=== PATIENT | male | born 1960 | race African-American/Black ===

== ENCOUNTER 2021-08-02 16:19 | Inpatient (IN) | payer MEDICARE, MEDICAID, SELFPAY ==
[2021-08-02] VITALS (8 sets, daily range): BP systolic 113–137; BP diastolic 84–98; PULSE 57–76; RESP 14–22; TEMP 36.6–36.9; O2SAT 94–97; BMI 26.9
--- NOTE | ~2021-08-02 | US_ITS ---
EXAMINATION: US carotid duplex BI DATE: 08/03/2021 08:59 INDICATION: Left basal ganglia infarct. Transient ischemic attack. TECHNIQUE: Grayscale, color Doppler, and pulsed Doppler images of the cervical carotid arteries were obtained. The degree of vessel stenosis is placed in one of the following categories: normal, <50%, 5 0-69%, >=70% but less than near-occlusion, near-occlusion, or total occlusion. Note that percent sten osis relative to normal distal artery lumen diameter is indirectly measured from velocity measurement s as described by Deny, et al. Radiology 2003; 229:340-346. COMPARISON: None. FINDINGS: RIGHT: The right common carotid artery (CCA) peak systolic velocity (PSV) is 90 cm/s. The right internal car otid artery (ICA) PSV is 70 cm/s. The right ICA end-diastolic velocity (EDV) is 24 cm/s. The right IC A/CCA PSV ratio is 1.7. Grayscale and color Doppler images yield an estimate of <50% diameter reducti on from plaque in the ICA. There is antegrade flow in the right vertebral artery. LEFT: The left CCA PSV is 72 cm/s. The left ICA PSV is 51 cm/s. The left ICA EDV is 10 cm/s. The left ICA/C CA PSV ratio is 1.1. Grayscale and color Doppler images yield an estimate of <50% diameter reduction from plaque in the ICA. There is antegrade flow in the left vertebral artery. IMPRESSION: 1. <50% stenosis in the right internal carotid artery. 2. <50% stenosis in the left internal carotid artery. Reviewed, dictated and finalized at location A.
--- NOTE | ~2021-08-02 | MR_ITS ---
EXAMINATION: MR brain/brain stem wo con DATE: 08/03/2021 10:55 INDICATION: Transient ischemic attack. TECHNIQUE: Magnetic resonance imaging (MRI) of the brain and brainstem was performed without intraven ous contrast. COMPARISON: Head CT 08/02/21 FINDINGS: There is an acute infarct in right caudate nucleus. There is no intracranial hemorrhage or abnormal mass lesion. There are old infarcts involving the bilateral basal ganglia, wilian, and right c erebellum. There is chronic cystic encephalomalacia in the right frontal lobe deep white matter. Ther e are scattered areas of nonspecific increased T2-weighted signal intensity in the cerebral white mat ter. The ventricles are normal in size. There is mucosal thickening in the paranasal sinuses. There i s a left mastoid effusion. The orbits are normal. IMPRESSION: 1. Acute infarct in right caudate nucleus. 2. Old infarcts in the brain. 3. Moderate nonspecific cerebral white matter disease, which likely represents chronic small vessel i schemic disease. Reviewed, dictated and finalized at location A. IMPRESSION: 1. Acute infarct in right caudate nucleus. 2. Old infarcts in the brain. 3. Moderate nonspecific cerebral white matter disease, which likely represents chronic small vessel ischemic disease.
--- NOTE | ~2021-08-02 | CT_ITS ---
EXAMINATION: CT brain wo con DATE: 08/02/2021 16:25 INDICATION: Cerebrovascular accident TECHNIQUE: Computed tomography (CT) of the head was performed without intravenous contrast. The mA wa s adjusted according to patient size. Iterative reconstruction technique was employed. Exam dose: 60 5.33 mGy-cm total exam DLP. COMPARISON: None FINDINGS: Bilateral vertebral artery, basilar artery and bilateral carotid siphon and supraclinoid in ternal carotid artery calcifications. There is nonspecific diminished attenuation of the subcortical and periventricular cerebral white mat ter, likely due to chronic small vessel ischemic changes. Chronic left basal ganglia lacunar infarcts. Chronic bilateral periventricular lacunar infarcts. No intracranial mass lesion or hemorrhage or recent cerebrovascular accident is evident. No midline s hift or mass effect effect. No subdural or epidural hematoma.. No skull fracture or bone destruction is evident. There is soft tissue thickening the ethmoid air cells bilaterally and minimal mucoperiosteal thickeni ng of the left and bilateral sphenoid sinuses. IMPRESSION: Cerebral atherosclerosis and chronic small vessel ischemic changes of the cerebral white matter Chronic left basal ganglia and bilateral periventricular lacunar infarcts No acute intracranial finding Reviewed, dictated and finalized at Location A. Reviewed, dictated and finalized at location A.
--- NOTE | ~2021-08-02 | XR_ITS ---
EXAMINATION: XR chest 1V Exam Date/Time: 08/02/2021 16:20 CDT HISTORY: r/o cva Comparison: None available. RESULT: Lines, tubes, and devices: None. Lungs and pleura: Clear. Cardiomediastinal silhouette: Unremarkable cardiomediastinal silhouette. Other: No acute osseous or upper abdominal finding. IMPRESSION: No acute cardiopulmonary process. Reviewed, dictated and finalized at location K.
--- NOTE | 2021-08-02 16:19 | ECG_ITS ---
Measurements Intervals [place] Rate: 68 P: 38 RI: 159 QRS: -24 QRSD: 104 T: -7 QT: 389 QTc: 416 Interpretive Statements SINUS RHYTHM BORDERLINE LEFT AXIS DEVIATION [QRS AXIS < -20] MINIMAL VOLTAGE CRITERIA FOR LVH, CONSIDER NORMAL VARIANT [MEETS CRITERIA IN ONE OF: R(aVL), S(V1), R(V5), R(V5/V6)+S(V1)] NONSPECIFIC T-WAVE ABNORMALITY NO PREVIOUS ECG AVAILABLE FOR COMPARISON Electronically Signed On 08-03-2021 7:22:57 CDT by Vitor Escobar M.D.
--- NOTE | 2021-08-02 16:26 | ED.BACK ---
HPI - Back Pain/Injury General Chief Complaint: Neuro Symptoms/Deficit Stated Complaint: ?CVA Time Seen by Provider: 08/02/21 16:21 History of Present Illness HPI Narrative: This 59-year-old male with history of previous CVA approximately 2 years ago presents to the emergency department for evaluation of an episode of altered mental status and worsening left-sided weakness. Fianc? states that they were having lunch and patient was leaning against the side of a car when he had decreased responsiveness. She states the patient did slump down while looking to the side. She reports the patient was not moving his left side. EMS was called. EMS states that the patient did have left-sided weakness and a code stroke was called in the field. Incident happened at approximately 3:20 PM. Upon arrival to the ED patient was able to participate in the initial stroke screening and patient went to CT scan. Patient did have decreased station gateman strength to the left and had decreased responsiveness. Patient and family report a prior CVA but denies any prior history of seizure. Fianc? states that patient does have left-sided deficit and dysarthria at baseline from prior stroke Related Data Allergies Allergy/AdvReac Type Severity Reaction Status Date / Time No Known Allergies Allergy Unverified 05/09/18 17:32 Review of Systems Review of Systems: CONSTITUTIONAL: Denies fever, chills, or sweats. EYES: Denies visual changes, redness, or discharge. ENT: Denies rhinorrhea, congestion, sore throat, or otalgia. CARDIOVASCULAR: Denies chest pain, palpitations, or edema. RESPIRATORY: Denies cough or dyspnea. GASTROINTESTINAL: Denies abdominal pain, nausea, vomiting, or diarrhea. GENITOURINARY: Denies dysuria or hematuria. SKIN: Denies rash or itching. MUSCULOSKELETAL: Denies back pain, joint pain, or myalgia. NEUROLOGIC: Altered mental status on arrival PSYCHIATRIC: Denies anxiety or depression. Exam Narrative: APPEARANCE: Well appearing, no pain, no distress, well-nourished. HEAD: normocephalic, atraumatic. EYES: PERRLA/EOMI, conjunctivae clear. NOSE: Normal no drainage THROAT: Pharynx clear, no exudate. NECK: Supple. No adenopathy, no masses. RESPIRATORY: Airway patent, respirations nonlabored. Clear to auscultation bilaterally, no rales, rhonchi, wheezing. CARDIOVASCULAR: Regular rate and rhythm without murmurs rubs or gallops. ABDOMINAL: Soft, nontender, nondistended, normal bowel sounds MUSCULOSKELETAL: Moves all extremities. Strength/ROM intact, No edema, No calf tenderness. NEURO: Alert. Cranial nerves II through XII intact. Patient's only significant neurodeficit is his dysarthria. Patient's mental status did significantly improve during his stay in the ED. SKIN: Warm, dry. Normal Color Course Course Emergency Course: Patient did return to his normal baseline. Suspect patient had a TIA. Patient states he is not on any anticoagulation. Patient's head CT was negative for acute intracranial abnormality. Case was discussed with Dr. Pulido and patient will be admitted for further work-up. Case was also discussed with the hospitalist patient will be admitted to [facility]. Patient was given aspirin prior to going to the floor. Vital Signs Vital signs: Vital Signs Temperature 98.4 F 08/02/21 16:27 Pulse Rate 68 08/02/21 16:27 Respiratory Rate 22 H 08/02/21 16:27 Blood Pressure 113/84 08/02/21 16:27 Pulse Oximetry 97 08/02/21 16:27 Oxygen Delivery Room Air 08/02/21 16:27 Temperature 98.4 F 08/02/21 16:27 Pulse Rate 69 08/02/21 16:45 Respiratory Rate 14 08/02/21 16:45 Blood Pressure 113/84 08/02/21 16:35 Pulse Oximetry 97 08/02/21 16:27 Oxygen Delivery Room Air 08/02/21 16:27 MDM - Back Pain/Injury Lab Data Attestation: I reviewed the patient's lab results. Result diagrams: 08/02/21 16:22 08/02/21 16:22 Labs: Lab Results 08/02/21 08/02/21 08/02/21 Range/Units 16:2
[2021-08-02 16:34] LABS: Basophils Absolute Auto 0.1 K/mm3 (0.0-0.1); Basophils Percent Auto 0.9 % (0.2-1.2); Eosinophils Absolute Auto 0.1 K/mm3 (0-0.3); Eosinophils Percent Auto 1.9 % (0-4.4); Hematocrit 47.2 % (42.0-52.0); Hemoglobin 15.9 g/dL (14.0-18.0); Lymphocytes Absolute Auto 1.71 K/mm3 (0.9-3.2); Lymphocytes Percent Auto 29.8 % (18.3-44.2); Mean Corpuscular HGB Conc 33.7 g/dl (32-36); Mean Corpuscular Hemoglobin 29.7 pg (26-34); Mean Corpuscular Volume 88.2 fl (80-100); Mean Platelet Volume 8.8 fl (7.4-10.4); Monocytes Absolute Auto 0.5 K/mm3 (0.1-0.6); Monocytes Percent Auto 8.4 % (2.6-8.5); Neutrophils Absolute Auto 3.4 K/mm3 (1.3-6.7); Platelet Count Result 251 k/mm3 (150-375); Red Blood Count 5.35 M/mm3 (4.6-6.20); White Blood Count 5.7 K/mm3 (4.5-10.0)
[2021-08-02 16:44] LABS: Alanine Aminotransferase 44 U/L (6-50); Albumin Level 4.6 g/dL (3.5-5.1); Alkaline Phosphatase 81 U/L (38-126); Anion Gap 11 mmol/L (8-16); Aspartate Amino Transferase 36 U/L (17-59); Blood Urea Nitrogen 17 mg/dL (9-20); Calcium 8.7 mg/dL (8.4-10.2); Carbon Dioxide 22 mmol/L (22-30); Chloride 105 mmol/L (98-107); Estimated CRCL calculation 61 ml/min; Estimated Glomerular Filt Rate > 60; Glucose 117 mg/dL (65-110); Potassium 3.6 mmol/L (3.4-5.0); Sodium 138 mmol/L (137-145)
[2021-08-02 16:49] LABS: Partial Thromboplastin Time 25.5 SECONDS (22.3-36.8)
[2021-08-02 16:56] LABS: Troponin I < 0.012 ng/mL (0.000-0.034)
[2021-08-02 17:04] LABS: Ethanol < 10 mg/dL (<10)
--- NOTE | 2021-08-02 17:15 | PM.IMHP ---
H&P: HPI History of Present Illness Date/Time: 08/02/21 17:15 Chief Complaint: Left face droop and slurred speech. Narrative: This is a 61-year-old male smoker with history of stroke in April 2018 with residual left sided weakness and slurred speech and dyslipidemia who presented to the emergency department via EMS for evaluation of left face droop and slurred speech. He knows grow from 1 out to lunch and he seemed to be in his usual state of health at that time. When they were walking back to the car he suddenly stopped and rested his arms on the car, turned to harm with a strange look on his face, and he seemed to be slumped over onto the car. He was not answering her questions and slowly seemed to slide down the car until he landed on his buttocks on the ground. She called for help at which time she was instructed to evaluate the patient and she reports that he was unable to raise either his arms up or speak however she goes on to say that it seems as though he just was not processing what she said. EMS was summoned and he was brought to the ER for evaluation as they noticed left-sided facial drooping and slurred speech. Brain CT showed no acute findings and his labs were essentially unremarkable. Incidentally he tested positive for SARS-CoV-2 by PCR and with further questioning he denies sick contacts. He has had somewhat of a cough which has been nonproductive and he denies other symptoms of such. At the time my evaluation he has reportedly at baseline with mild residual left-sided weakness and his chronic slurred speech. There was no mention of seizure activity with this episode today. Review of Systems Review of Systems: Twelve systems were reviewed. No fever, chills, or sweats. No sinus congestion or sore throat. Cough has been nonproductive. No chest pain or shortness of breath. Appetite has been good. He denies nausea but girlfriend reports that he had 1 episode of emesis shortly after he fell to the ground on his buttocks today. Denies dysuria and diarrhea. Except as documented, all other systems were reviewed and are negative. FOR[facility]LY [facility] Past Medical History Medical History (Updated 08/02/21 @ 20:41 by Tianna Moffett PA-C) Cerebrovascular accident (04/2018) Residual slurred speech and left-sided weakness. Dyslipidemia Tobacco dependence Surgical History Surgical History (Updated 08/02/21 @ 20:36 by Tianna Moffett PA-C) No history of previous surgery Family History Family History Mother Cerebrovascular accident Hypertension Sibling Prostate carcinoma Social History Social History (Updated 08/02/21 @ 20:36 by Tianna Moffett PA-C) Social History: Surrogate decision maker: Naeem Olivia, daughter. Code status: Full code. Smoking status: Current every day smoker Alcohol intake: current Drinks per week: 3 Substance use: never Additional living arrangements comments: The patient lives with his mother. Occupation/Education: unemployed Additional occupation/education comments: Disabled. Spiritual care concerns: No Meds Home Medications and Allergies Allergies Allergy/AdvReac Type Severity Reaction Status Date / Time No Known Allergies Allergy Unverified 05/09/18 17:32 Vital Signs Vital Signs - 24 hr 08/02/21 16:27 08/02/21 16:33 08/02/21 16:35 Temperature 98.4 F Pulse Rate 68 67 76 Respiratory Rate 22 H 19 Blood Pressure 113/84 113/84 Pulse Oximetry 97 Oxygen Delivery Room Air 08/02/21 16:45 08/02/21 19:31 08/02/21 20:12 Temperature 97.9 F Pulse Rate 69 71 64 Respiratory Rate 14 17 18 Blood Pressure 129/98 H 137/86 Pulse Oximetry 94 97 Oxygen Delivery Exam Narrative: General: Well-developed male sitting up in bed no distress. Nontoxic in appearance. Weight: 82.5 kg. BMI: 26.9. HEENT: PERRL, EOMI. Sclerae anicteric. Oral mucosa moist. Oropharynx clear. Neck: Supple. No obviou
[2021-08-02] MEDS: ASPIRIN 81 MG CHEWABLE TABLET 324 MG PO (17:37)
[2021-08-02 18:03] LABS: SARS-CoV-2 RNA PCR Positive
--- NOTE | 2021-08-02 20:13 | ADMGEN ---
This patient, Randall Olivia, was admitted to Medical Room 252-01. Patient/family oriented to hospital policies and general routines including ID bracelet, bed and alarms, visiting hours, pain management, procedures, bathroom and other care routines, personal items, smoking policy, room service/diet, and visiting hours. Information on how to activate the Rapid Response Team has been discussed. Patient/Family are encouraged to report perceived risks to care and to ask questions if they do not understand what they are told or what they should do.
[2021-08-03] VITALS (9 sets, daily range): BP systolic 149–175; BP diastolic 88–92; PULSE 47–71; RESP 14–18; TEMP 36.4–36.7; O2SAT 99–100
[2021-08-03 05:49] LABS: Sodium 138 mmol/L (137-145)
[2021-08-03 05:50] LABS: Anion Gap 8 mmol/L (8-16); Blood Urea Nitrogen 16 mg/dL (9-20); Calcium 8.4 mg/dL (8.4-10.2); Carbon Dioxide 25 mmol/L (22-30); Chloride 105 mmol/L (98-107); Estimated CRCL calculation 83 ml/min; Estimated Glomerular Filt Rate > 60; Glucose 96 mg/dL (65-110); Magnesium 2.2 mg/dL (1.6-2.3); Potassium 3.8 mmol/L (3.4-5.0)
[2021-08-03 08:04] LABS: Glucose Point of Care 117 mg/dl (65-105)
[2021-08-03] MEDS: ASPIRIN 81 MG CHEWABLE TABLET PO (09:04)
--- NOTE | 2021-08-03 11:38 | PM.IMPN ---
Progress Note: A&P Assessment and Plan (1) Cerebrovascular accident: Onset Date: 04/2018 Code(s): I63.9 - Cerebral infarction, unspecified Status: Acute Assessment and Plan: -brought in for transient neurologic symptoms including worsening slurred speech, left face droop, and weakness -acute CVA confirmed on MRI -cartoid doppler negative -echo ordered -lipid panel: triglycerides slightly elevated, LDL/total cholesterol WNL -continued aspirin, added plavix and atorvastatin -neuro consulted -PT/OT (2) SARS-CoV-2 positive: Code(s): U07.1 - COVID-19 Status: Acute Assessment and Plan: -Patient reports having mild cough only. -He has been placed in isolation per protocol. -No indication for remdesivir or dexamethasone. (3) Dyslipidemia: Code(s): E78.5 - Hyperlipidemia, unspecified Status: Acute Assessment and Plan: -Continue atorvastatin. (4) Tobacco dependence: Code(s): F17.200 - Nicotine dependence, unspecified, uncomplicated Status: Acute Assessment and Plan: -Smoking cessation is imperative and was discussed. -Nicotine patch available for the patient per his request. Subjective Date/time seen: 08/03/21 11:38 Interval history: 61-year-old male smoker with history of stroke in April 2018 with residual left sided weakness and slurred speech and dyslipidemia admitted for worsened facial droop and slurred speech. Pt is feeling at his baseline weakness today. Had some nausea yesterday, none today. No cp/sob. Review of Systems Review of Systems: All systems reviewed & are unremarkable except as noted in HPI and below Exam Narrative: General: No acute distress. Nontoxic in appearance. Weight: 82.5 kg. BMI: 26.9. HEENT: PERRL, EOMI. Sclerae anicteric. Oral mucosa moist. Neck: Supple. Respiratory: Lungs are clear to auscultation bilaterally. Cardiovascular: Regular rate and rhythm with S1-S2. Gastrointestinal: Abdomen is soft, nontender, and nondistended with positive bowel sounds. Skin: Warm and dry. No rash or lesions on limited exam. Extremities: No cyanosis, clubbing, or edema. Radial and pedal pulses intact. Neurological: Alert and oriented. Cranial nerves 2-12 are grossly intact. Speech is slurred and at baseline. Mild left mouth droop. 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 Left upper and lower extremity 4.5/5, 5/5 in right upper and lower extremity. Psychiatric: Normal affect. Appropriate mood. Objective Data Vital Signs Vital Signs: Vital Signs - 24 hr 08/02/21 16:27 08/02/21 16:33 08/02/21 16:35 Temperature 98.4 F Pulse Rate 68 67 76 Respiratory Rate 22 H 19 Blood Pressure 113/84 113/84 Pulse Oximetry 97 Oxygen Delivery Room Air 08/02/21 16:45 08/02/21 19:31 08/02/21 20:12 Temperature 97.9 F Pulse Rate 69 71 64 Respiratory Rate 14 17 18 Blood Pressure 129/98 H 137/86 Pulse Oximetry 94 97 Oxygen Delivery 08/02/21 20:51 08/02/21 21:06 08/02/21 21:19 Temperature Pulse Rate 57 L Respiratory Rate Blood Pressure Pulse Oximetry 96 Oxygen Delivery Room Air Room Air 08/03/21 04:14 08/03/21 00:00 08/03/21 04:00 Temperature 97.8 F Pulse Rate 51 L 71 57 L Respiratory Rate 18 Blood Pressure 149/92 H Pulse Oximetry 100 Oxygen Delivery 08/03/21 09:15 08/03/21 08:03 Temperature Pulse Rate 66 Respiratory Rate Blood Pressure Pulse Oximetry Oxygen Delivery Room Air Intake/Output Intake/Output: Intake & Output 07/31/21 08/01/21 08/02/21 08/03/21 23:59 23:59 23:59 23:59 Intake Total 720 Balance 720 Meds/Results Medications: Active Medications Generic Name Dose Route Start Last Admin Trade Name Freq PRN Reason Stop Dose Admin Aspirin 81 mg 08/03/21 08:00 08/03/21 09:04 Aspirin 81 Mg Chewable Tablet PO 81 mg DAILY@0800 [facility] Adminis
--- NOTE | 2021-08-03 11:38 | WPDNEURCNPN ---
Assessment and Plan Assessment and plan (1) TIA (transient ischemic attack): Code(s): G45.9 - Transient cerebral ischemic attack, unspecified Status: Acute Plan TIA with instead investigation as planned in addition to the positive COVID further evaluation as being done and in the meantime continued on aspirin 81 mg daily Consult date: 08/03/21 Time Seen: 10:00 Reason for consult: stroke HPI: Randall Olivia is a 61 year old male admitted to the hospital through the emergency room with the history of previous stroke about 2 years ago and this time an episode of altered mental status and the worsening left-sided weakness reportedly they were having lunch patient was leaning to the side of the car and became somewhat unresponsive and subsequently slumped down at the same time the partner mentioned that he was not moving the left side on initial evaluation in the emergency room patient was noted to have decreased strength on the left side along with the decreased responsiveness his CT scan was negative for any bleed and he was admitted to the hospital for further evaluation initial vital signs were stable so as the routine lab the CT scan of the head documented chronic left basal ganglia and bilateral periventricular lacunar infarcts with negative x-ray of the chest normal EKG patient is currently everyday smoker with 3 drinks per week but no substance use he is not allergic to any medication Review of Systems Review of Systems: All systems reviewed & are unremarkable except as noted in HPI and below PMFSH Past Medical History Medical History Cerebrovascular accident (04/2018) Residual slurred speech and left-sided weakness. Dyslipidemia Tobacco dependence Surgical History Surgical History No history of previous surgery Family History Family History Mother Cerebrovascular accident Hypertension Sibling Prostate carcinoma Social History Social History Social History: Surrogate decision maker: Naeem Olivia, daughter. Code status: Full code. Smoking status: Current every day smoker Alcohol intake: current Drinks per week: 3 Substance use: never Additional living arrangements comments: The patient lives with his mother. Occupation/Education: unemployed Additional occupation/education comments: Disabled. Spiritual care concerns: No Meds Home Medications and Allergies Home Medications Medication Instructions Recorded Confirmed Type No Home Medications 08/02/21 08/02/21 History Allergies Allergy/AdvReac Type Severity Reaction Status Date / Time No Known Allergies Allergy Unverified 05/09/18 17:32 Vital Signs Vital Signs - 24 hr 08/02/21 16:27 08/02/21 16:33 08/02/21 16:35 Temperature 36.9 C Pulse Rate 68 67 76 Respiratory Rate 22 H 19 Blood Pressure 113/84 113/84 Pulse Oximetry 97 Oxygen Delivery Room Air 08/02/21 16:45 08/02/21 19:31 08/02/21 20:12 Temperature 36.6 C Pulse Rate 69 71 64 Respiratory Rate 14 17 18 Blood Pressure 129/98 H 137/86 Pulse Oximetry 94 97 Oxygen Delivery 08/02/21 20:51 08/02/21 21:06 08/02/21 21:19 Temperature Pulse Rate 57 L Respiratory Rate Blood Pressure Pulse Oximetry 96 Oxygen Delivery Room Air Room Air 08/03/21 04:14 08/03/21 00:00 08/03/21 04:00 Temperature 36.6 C Pulse Rate 51 L 71 57 L Respiratory Rate 18 Blood Pressure 149/92 H Pulse Oximetry 100 Oxygen Delivery 08/03/21 09:15 08/03/21 08:03 Temperature Pulse Rate 66 Respiratory Rate Blood Pressure Pulse Oximetry Oxygen Delivery Room Air Exam Narrative: reveals him to be awake alert cooperative in no obvious acute distress head normocephalic with no cranial bruit ear nose throat examination normal,
[2021-08-03] MEDS: CLOPIDOGREL BISULFATE 75 MG TABLET PO (12:20)
[2021-08-03] MEDS: ATORVASTATIN 40 MG TABLET PO (12:20)
--- NOTE | 2021-08-03 15:13 | PCNSR ---
On 08/03/21, the student, Lonny Sifuentes, provided care and completed [facility] documentation on this patient. I have reviewed the student's documentation and agree with the findings.
--- NOTE | 2021-08-03 20:43 | ECHO_ITS ---
Patient Info Name: Randall Olivia Age: 61 years : 1960 Gender: Male Ht: 69 in Wt: 180 lbs BSA: 2.01 m2 HR: 51 bpm BP: 149 / 92 mmHg Heart Rhythm: Sinus Rhythm, Bradycardia Technical Quality: Fair Exam Date: 08/03/2021 12:50 PM Exam Location: [facility] Patient Status: Outpatient Admit Date: 08/02/2021 Staff Ordering Physician: Tianna Moffett PA-C Base Manager: Dorene Ortez RDCS Attending Provider: Marilou Rodríguez PA-C Referring Physician: Zuhair ARGUETA; Exam Type: CA echo doppler color flow Study Info Indications - TIA Complete two-dimensional, color flow and Doppler transthoracic echocardiogram is performed. Summary 1. Complete two-dimensional, color flow and Doppler transthoracic echocardiogram is performed. 2. Normal left ventricular size with severe concentric hypertrophy. Mild global hypokinesis present, with no segmental wall motion abnormalities. Ejection fraction is estimated 45%. Grade 2 diastolic dysfunction is present. 3. Left atrial chamber dimension is mildly enlarged. 4. No significant valve disease. 5. Sinus bradycardia. Left Ventricle Left ventricular chamber dimension is normal. Left ventricular systolic function is mildly reduced, estimated at 45-50%. There is severely increased left ventricular wall thickness. Left ventricular septal wall motion is normal. The left ventricular diastolic function is grade II diastolic dysfunction. Right Ventricle Right ventricular chamber dimension is normal. Right ventricular systolic function is normal. Left Atria Left atrial chamber dimension is mildly enlarged. Right Atria Right atrial chamber dimension is normal. Aortic Valve The aortic valve is trileaflet. There is mild aortic valve sclerosis. There is no aortic valve stenosis. There is no aortic valve regurgitation. Pulmonic Valve The pulmonic valve is normal. There is no pulmonic valve stenosis. There is no pulmonic regurgitation. Mitral Valve The mitral valve has normal leaflets. There is no mitral valve stenosis. There is no mitral valve regurgitation. Tricuspid Valve The tricuspid valve leaflets are normal. There is no significant tricuspid valve stenosis. There is trace tricuspid valve regurgitation. No pulmonary hypertension, estimated pulmonary arterial systolic pressure is 30 mmHg. Pericardium/Pleural The pericardium appears normal. There is no pericardial effusion. Inferior Vena Cava Normal inferior vena cava with >50% collapse upon inspiration consistent with Empty right atrial pressure, 10 mmHg. Aorta The aortic root size at the sinus of Valsalva is normal. The prox ascending aorta size is normal. Left Ventricular Outflow Tract Name Value Normal LVOT 2D LVOT Diameter 2.4 cm LVOT Doppler LVOT Peak Gradient 3 mmHg LVOT Mean Gradient 1 mmHg LVOT VTI 14 cm LVOT VTI/AV VTI Ratio 0.7 LVOT Stroke Volume 62 ml LVOT CO 2.8 l/m
[2021-08-04] VITALS (9 sets, daily range): BP systolic 115–174; BP diastolic 74–92; PULSE 50–104; RESP 16–20; TEMP 36.2–36.5; O2SAT 95–100
[2021-08-04 05:42] LABS: Basophils Percent Auto 0.7 % (0.2-1.2); Eosinophils Absolute Auto 0.2 K/mm3 (0-0.3); Eosinophils Percent Auto 4.7 % (0-4.4); Hematocrit 45.8 % (42.0-52.0); Hemoglobin 15.2 g/dL (14.0-18.0); Immature Granulocyte Absolute 0.01 K/mm3 (0.00-0.031); Immature Granulocyte Percent A 0.2 % (0-0.5); Lymphocytes Absolute Auto 2.14 K/mm3 (0.9-3.2); Lymphocytes Percent Auto 52.8 % (18.3-44.2); Mean Corpuscular HGB Conc 33.2 g/dl (32-36); Mean Corpuscular Hemoglobin 29.5 pg (26-34); Mean Corpuscular Volume 88.8 fl (80-100); Mean Platelet Volume 9.3 fl (7.4-10.4); Monocytes Absolute Auto 0.3 K/mm3 (0.1-0.6); Monocytes Percent Auto 8.1 % (2.6-8.5); Neutrophils Absolute Auto 1.4 K/mm3 (1.3-6.7); Neutrophils Percent Auto 33.5 % (45.5-73.1); Platelet Count Result 263 k/mm3 (150-375); Red Blood Count 5.16 M/mm3 (4.6-6.20); Red Cell Distribution Width 13.6 % (11.5-14.5); White Blood Count 4.1 K/mm3 (4.5-10.0)
[2021-08-04 05:57] LABS: Alanine Aminotransferase 28 U/L (6-50); Albumin Level 4.1 g/dL (3.5-5.1); Alkaline Phosphatase 72 U/L (38-126); Anion Gap 7 mmol/L (8-16); Aspartate Amino Transferase 24 U/L (17-59); Bilirubin,Total 0.8 mg/dL (0.2-1.3); Blood Urea Nitrogen 14 mg/dL (9-20); Calcium 8.4 mg/dL (8.4-10.2); Carbon Dioxide 24 mmol/L (22-30); Chloride 106 mmol/L (98-107); Estimated CRCL calculation 83 ml/min; Estimated Glomerular Filt Rate > 60; Glucose 98 mg/dL (65-110); Potassium 3.8 mmol/L (3.4-5.0); Sodium 137 mmol/L (137-145)
[2021-08-04] MEDS: CLOPIDOGREL BISULFATE 75 MG TABLET PO (09:24)
[2021-08-04] MEDS: lisinopriL 10 MG TABLET PO (09:24)
[2021-08-04] MEDS: ASPIRIN 81 MG CHEWABLE TABLET PO (09:24)
[2021-08-04] MEDS: ATORVASTATIN 40 MG TABLET PO (09:24)
--- NOTE | 2021-08-04 12:10 | WPDNEUROPN ---
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: Code(s): I63.9 - Cerebral infarction, unspecified; R41.89 - Other symptoms and signs involving cognitive functions and awareness Status: Acute Plan subcortical right caudate nucleus stroke in addition to old bilateral basal gangliar wilian and right cerebellar stroke with cystic encephalomalacia involving the right frontal lobe Additional Plan 1 control of the blood pressure 2 aspirin 81 mg daily 3 no smoking4 follow-up in the office on a regular basis Time Spent With Patient Time with patient: less than 15 minutes Subjective Date/time seen: 08/04/21 12:10 Review of Systems Review of Systems: All systems reviewed & are unremarkable except as noted in HPI and below Exam Const: General: cooperative, healthy appearing, comfortable and no acute distress Nutritional Appearance: average body habitus Orientation/consciousness: oriented to person, oriented to place and oriented to time Limitations: no limitations HENMT: Head: normal to inspection and normocephalic Ears: hearing grossly normal bilaterally General nose exam: Normal external nose present Face and sinus: normal facial exam Mouth: Yes Normal oral and palatal mucosa present Eyes: General: appearance normal, both eyes and all related structures Visual Verdugo: normal visual verdugo by confrontation Alignment and Position: alignment normal Periorbital: periorbital findings normal Eyelids: eyelids normal Conjunctivae: conjunctivae normal Sclera: sclerae normal Cornea: corneas normal Pupils: Equal, round and reactive pupils present EOM: EOMs intact bilaterally Neck: Neck: normal visual inspection and full ROM Carotids: normal carotid upstroke Chest: Chest palpation & inspection: normal inspection of the chest Resp: Effort & Inspection: normal respiratory effort and able to speak in complete sentences Auscultation: clear to auscultation bilaterally Cardio: Jugular venous distension: no JVD Rate: regular rate Rhythm: regular rhythm Back/Spine/Pelvis: Cervical Spine: cervical ROM normal Skin: Lesions: no lesions Neuro: General: oriented to person, oriented to place and oriented to time Cranial nerves: Yes CN's II-XII intact bilaterally Cognition (Neuro): normal cognition Speech: normal speech Gait exam (Neuro): Normal gait present Deep tendon reflexes (DTR's): Right triceps reflex intensity grade: 1+, Left triceps reflex intensity grade: 1+, Rt Biceps (C5, C6): 1+, Left biceps reflex intensity grade: 1+, Right brachioradialis reflex intensity grade: 1+, Left brachioradialis reflex intensity grade: 1+, Right patellar reflex intensity grade: 1+, Left patellar reflex intensity grade: 1+, Right ankle reflex intensity grade: 1+ and Left ankle reflex intensity grade: 1+ Plantar Reflex Responses: downgoing: bilateral Coordination: [id number] test normal Extrem: General: full ROM Psych: Appearance: grossly normal Mental Status: mental status grossly normal Speech and movement: Normal speech and movement present Affect: normal affect Attitude: cooperative Thought process: Normal thought process present Thought content: Yes Normal thought content present Insight: Fair insight present (Psych) Judgement: Fair judgement present (Psych) Objective Data Vital Signs Vital Signs: Vital Signs - 24 hr 08/03/21 13:41 08/03/21 15:11 08/03/21 16:03 Temperature 36.7 C Pulse Rate 61 52 L Respiratory Rate 14 Blood Pressure 153/90 H Pulse Oximetry 100 Oxygen Delivery Room Air 08/03/21 20:27 08/03/21 20:00 08/04/21 00:00 Temperature 36.4 C Pulse Rate 48 L 47 L 53 L Respiratory Rate 16 Blood Pressure 175/88 H Pulse Oximetry 99 Oxygen Delivery 08/04/21 05:31 08/04/21 04:00 08/04/21 09:25 Temperature 36.5 C Pulse Rate 104 H 50 L Respiratory Rate 16 Blood Pressure 150/84 H Pulse Oximetry 95 Oxygen Delivery
--- NOTE | 2021-08-04 13:08 | PM.IMPN ---
Progress Note: A&P Assessment and Plan (1) Cerebrovascular accident: Onset Date: 04/2018 Code(s): I63.9 - Cerebral infarction, unspecified Status: Acute Assessment and Plan: -brought in for transient neurologic symptoms including worsening slurred speech, left face droop, and weakness -acute CVA confirmed on MRI -cartoid doppler negative - no arrhythmia noted on telemetry. -echo negative for PFO. severe LVH and grade 2 diastolic dysfunction noted. -lipid panel: triglycerides slightly elevated, LDL 105, HDL 37 - BP 150/85 to 175/88 -continued aspirin, plavix, increase to high-dose atorvastatin 80 mg daily, add lisinopril 10 mg daily. -neuro consulted -PT/OT consulted; Skilled OT recommended. Care coordination following for rehab placement. -Speech eval pending. Aspiration precautions. (2) SARS-CoV-2 positive: Code(s): U07.1 - COVID-19 Status: Acute Assessment and Plan: -Patient reports having mild cough only. -Continue isolation per protocol. -No indication for remdesivir or dexamethasone. (3) Dyslipidemia: Code(s): E78.5 - Hyperlipidemia, unspecified Status: Acute Assessment and Plan: -as above. (4) Tobacco dependence: Code(s): F17.200 - Nicotine dependence, unspecified, uncomplicated Status: Acute Assessment and Plan: -counseled to quit smoking. -Nicotine patch available for the patient per his request. (5) Hypertensive heart disease with chronic diastolic congestive heart failure: Code(s): I11.0 - Hypertensive heart disease with heart failure; I50.32 - Chronic diastolic (congestive) heart failure Status: Chronic Assessment and Plan: -started on lisinopril. Continue aspirin & plavix. Consider ischemic work-up outpatient. EF 45% Time Spent With Patient Time with patient: 15 - 25 minutes Subjective Date/time seen: 08/04/21 13:08 Interval history: 61-year-old male smoker with history of stroke in April 2018 with residual left sided weakness and slurred speech and dyslipidemia admitted for worsened facial droop and slurred speech. Pt denies new complaints or overnight events. He thinks his left side is stronger today. Nursing reports concern that the patient had difficulty swallowing his pills this morning; he required cues for swallowing reportedly. Review of Systems Review of Systems: All systems reviewed & are unremarkable except as noted in HPI and below Exam Narrative: General: No acute distress. Nontoxic in appearance. HEENT: NC, AT, PERRL, EOMI. Sclerae anicteric. Oral mucosa moist. Neck: Supple. Respiratory: Lungs are clear to auscultation bilaterally. RR even and unlabored. Cardiovascular: Regular rate and rhythm with S1-S2. No murmur, gallop or rub. Gastrointestinal: Abdomen is soft, nontender, and nondistended with positive bowel sounds. Skin: Warm and dry. No rash or lesions on limited exam. Extremities: No cyanosis, clubbing, or edema. Radial and pedal pulses intact. No edema. Neurological: Alert and oriented. Cranial nerves 2-12 are grossly intact. Speech is slurred and at baseline. Mild left mouth droop. 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 Left upper and lower extremity 4.5/5, 5/5 in right upper and lower extremity. Psychiatric: Normal affect. Appropriate mood. Objective Data Vital Signs Vital Signs: Vital Signs - 24 hr 08/03/21 13:41 08/03/21 15:11 08/03/21 16:03 Temperature 98.1 F Pulse Rate 61 52 L Respiratory Rate 14 Blood Pressure 153/90 H Pulse Oximetry 100 Oxygen Delivery Room Air 08/03/21 20:27 08/03/21 20:00 08/04/21 00:00 Temperature 97.6 F Pulse Rate 48 L 47 L 53 L Respiratory Rate 16 Blood Pressure 175/88 H Pulse Oximetry 99 Oxygen Delivery 08/04/21 05:31 08/04/21 04:00 08/04/21 09:25 Temperature 97.7 F Pulse Rate 104 H 50 L Respiratory Rate 16
[2021-08-05] VITALS (8 sets, daily range): BP systolic 157–185; BP diastolic 86–97; PULSE 44–64; RESP 16–18; TEMP 36.1–36.8; O2SAT 95–100
[2021-08-05 06:16] LABS: Hematocrit 44.7 % (42.0-52.0); Hemoglobin 15.3 g/dL (14.0-18.0); Mean Corpuscular HGB Conc 34.2 g/dl (32-36); Mean Corpuscular Hemoglobin 30.2 pg (26-34); Mean Corpuscular Volume 88.2 fl (80-100); Mean Platelet Volume 9.2 fl (7.4-10.4); Platelet Count Result 268 k/mm3 (150-375); Red Blood Count 5.07 M/mm3 (4.6-6.20); Red Cell Distribution Width 13.3 % (11.5-14.5); White Blood Count 4.2 K/mm3 (4.5-10.0)
[2021-08-05 06:30] LABS: Anion Gap 7 mmol/L (8-16); Blood Urea Nitrogen 13 mg/dL (9-20); Calcium 8.4 mg/dL (8.4-10.2); Carbon Dioxide 23 mmol/L (22-30); Chloride 106 mmol/L (98-107); Estimated CRCL calculation 94 ml/min; Estimated Glomerular Filt Rate > 60; Glucose 93 mg/dL (65-110); Potassium 3.9 mmol/L (3.4-5.0); Sodium 136 mmol/L (137-145)
[2021-08-05] MEDS: ENOXAPARIN 40 MG/0.4 ML SYRINGE SUB-Q (08:45)
[2021-08-05] MEDS: CLOPIDOGREL BISULFATE 75 MG TABLET PO (08:45)
[2021-08-05] MEDS: lisinopriL 10 MG TABLET PO ×2 (08:46→11:40)
[2021-08-05] MEDS: ASPIRIN 81 MG CHEWABLE TABLET PO (08:46)
[2021-08-05] MEDS: ATORVASTATIN 40 MG TABLET 80 MG PO (08:46)
[2021-08-05 13:56] LABS: Add Urine Microscopic? NO; Appearance Urine Clear (Clear); Bilirubin Urine Negative (Negative); Blood Urine Negative (Negative); Color Urine Yellow (Yellow); Glucose Urine UA Negative (Negative); Ketones Urine Negative (Negative); Leukocyte Esterase Ur Negative LEU/UL (Negative); Nitrate Urine Negative (Negative); Protein Urine Negative (Negative)
--- NOTE | 2021-08-05 14:23 | PM.IMPN ---
Progress Note: A&P Assessment and Plan (1) Cerebrovascular accident: Onset Date: 04/2018 Code(s): I63.9 - Cerebral infarction, unspecified Status: Acute Assessment and Plan: -brought in for transient neurologic symptoms including worsening slurred speech, left face droop, and weakness -acute CVA confirmed on MRI -cartoid doppler negative -no arrhythmia noted on telemetry. -echo negative for PFO. severe LVH and grade 2 diastolic dysfunction noted. -lipid panel: triglycerides slightly elevated, LDL 105, HDL 37. Lipitor increased to high-dose. - BP 160-180/80s. Lisinopril increased to 20 mg daily. -continued aspirin and plavix. -neuro following and appreciate recommendations. -PT/OT consulted and home health therapy appropriate. Care coordination following. -Speech eval at bedside completed and no dysphagia diet needed. Continue aspiration precautions. (2) SARS-CoV-2 positive: Code(s): U07.1 - COVID-19 Status: Acute Assessment and Plan: -Patient reports having mild cough only. -Continue isolation per protocol. -No indication for remdesivir or dexamethasone. (3) Urinary retention: Code(s): R33.9 - Retention of urine, unspecified Status: Acute Assessment and Plan: -PVR 190 mL today. Daughter reports concern for incontinence. This may be overflow incontinence and/or neurogenic bladder. -Add tamsulosin 0.4 mg at HS and monitor urine output. (4) Dyslipidemia: Code(s): E78.5 - Hyperlipidemia, unspecified Status: Acute Assessment and Plan: -as above. (5) Tobacco dependence: Code(s): F17.200 - Nicotine dependence, unspecified, uncomplicated Status: Acute Assessment and Plan: -counseled to quit smoking. -Nicotine patch available for the patient per his request. (6) Hypertensive heart disease with chronic diastolic congestive heart failure: Code(s): I11.0 - Hypertensive heart disease with heart failure; I50.32 - Chronic diastolic (congestive) heart failure Status: Chronic Assessment and Plan: -started on lisinopril. Continue aspirin & plavix. Consider ischemic work-up outpatient. EF 45% Additional Plan The patient has been admitted under observation status. Supervising physician for this history and physical is Dr. Dariela Pizarro. Time Spent With Patient Time with patient: 15 - 25 minutes Subjective Date/time seen: 08/05/21 14:23 Interval history: 61-year-old male smoker with history of stroke in April 2018 with residual left sided weakness and slurred speech and dyslipidemia admitted for worsened facial droop and slurred speech. Pt denies new complaints or overnight events. I spoke with his daughter over the phone, with the patient's permission, and she reports concern for patient's urinary incontinence and possible infection. Review of Systems Review of Systems: All systems reviewed & are unremarkable except as noted in HPI and below Exam Narrative: General: No acute distress. Nontoxic in appearance. HEENT: NC, AT, PERRL, Right EOM intact, left neglect. Sclerae anicteric. Oral mucosa moist. Neck: Supple. Respiratory: Lungs are clear to auscultation bilaterally. RR even and unlabored. Cardiovascular: Regular rate and rhythm with S1-S2. No murmur, gallop or rub. Gastrointestinal: Abdomen is soft, nontender, and nondistended with positive bowel sounds. Skin: Warm and dry. No rash or lesions on limited exam. Extremities: No cyanosis, clubbing, or edema. Radial and pedal pulses intact. No edema. Neurological: Alert and oriented. Cranial nerves 2-12 are grossly intact. Speech is slurred and at baseline. Mild left mouth droop. 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 Left upper and lower extremity 4.5/5, 5/5 in right upper and lower extremity. Psychiatric: Normal affect. Appropriate mood. Objective Data Vital Sign
--- NOTE | 2021-08-05 15:59 | PM.DS ---
DS: Admitting Diagnosis Discharge Date 08/05/2021 1604 Admitting Diagnosis Ischemic stroke DS: Discharge Diagnosis Discharge Diagnosis (1) Cerebrovascular accident: Onset Date: 04/2018 Code(s): I63.9 - Cerebral infarction, unspecified Status: Acute (2) Cognitive deficit due to multiple acute subcortical strokes: Code(s): I63.9 - Cerebral infarction, unspecified; R41.89 - Other symptoms and signs involving cognitive functions and awareness Status: Chronic (3) Urinary retention: Code(s): R33.9 - Retention of urine, unspecified Status: Acute (4) Hypertensive heart disease with chronic diastolic congestive heart failure: Code(s): I11.0 - Hypertensive heart disease with heart failure; I50.32 - Chronic diastolic (congestive) heart failure Status: Chronic (5) SARS-CoV-2 positive: Code(s): U07.1 - COVID-19 Status: Acute (6) Tobacco dependence: Code(s): F17.200 - Nicotine dependence, unspecified, uncomplicated Status: Chronic (7) Dyslipidemia: Code(s): E78.5 - Hyperlipidemia, unspecified Status: Chronic DS: Summary Hospital Course Reason for hospitalization: Slurred speech and left-sided weakness. Hospital Course: Randall Olivia is a 61-year-old male with history of previous ischemic stroke in April 2018 with residual left sided weakness and slurred speech, hypertension, tobacco dependence and dyslipidemia. He presented to the emergency department via EMS for evaluation of left face droop and slurred speech. He reportedly went out to lunch around 1300 and he seemed to be in his usual state of health at that time. When the patient and family were walking back to the car, he suddenly stopped and rested his arms on the car, turned with a strange look on his face, and he seemed to be slumped over onto the car. He was not answering the daughter's questions and slowly seemed to slide down the car until he landed on his buttocks on the ground. The patient's daughter called for help and she reported that he was unable to raise either his arms up or speak, and appeared as though he was not processing what she said. EMS was summoned and he was brought to the ER for evaluation. Brain CT showed no acute findings and his labs were essentially unremarkable. Incidentally he tested positive for SARS-CoV-2 by PCR and with further questioning he denies sick contacts.? He has had somewhat of a cough which has been nonproductive and he denied other symptoms of such. The patient was admitted to the medical floor and neurology was consulted. His slurred speech and left-sided weakness was noted to have returned to baseline functioning. Brain MRI was completed and showed new acute right caudate infarct. Aspirin and plavix were initiated. High dose lipitor was initiated. His blood pressure was elevated and permissive hypertension was allowed for 24 hours, however, his blood pressure remained 150-180s/80-90s. Given the evidence of severe LVH, lisinopril 10 mg PO was started inpatient. This was increased to 20 mg dialy by discharge, with instructions to increase to 40 mg daily in 1 week if BP remains >130/80. TTE was negative for PFO. Carotid doppler showed <50% stenosis bilateral ICA. PT/OT was consulted. Speech therapy was consulted as well and he did not require dysphagia diet. The patients daughter was requesting senior care care at discharge. The patient was discharged to SNF in stable condition. Of note, the patient was noted to refuse an ambulatory aid, per PT notes. The patient did not demonstrate symptoms of acute COVID19 pneumonia or viral disease at discharge. Time spent discussing smoking cessation with patient: 3 to 10 minutes Status at Discharge Cognitive/behavioral status at discharge: AOx1-2, dyarthria, cooperative, incontinent Functional status at discharge: uses cane/walker (intermittently uses/refuses walker) Overall status at discharge: patient is progressing b
== END 2021-08-05 20:50 | DRG 64 ==
LOC: ANHED 18:38 → ANH2MED 18:52
PROVIDERS: Emergency Medicine; Physician Assistant; Admitting Provider Family Medicine; Emergency Provider Emergency Medicine; PCP Family Medicine; Visit Provider Nurse Practitioner Family
DX: I63.233 Cerebral infarction due to unspecified occlusion or stenosis of bilateral carotid arteries (principal); U07.1 COVID-19; I50.32 Chronic diastolic (congestive) heart failure; I69.354 Hemiplegia and hemiparesis following cerebral infarction affecting left non-dominant side; R29.810 Facial weakness; R47.81 Slurred speech; F09 Unspecified mental disorder due to known physiological condition; I69.328 Other speech and language deficits following cerebral infarction; I69.322 Dysarthria following cerebral infarction; I69.392 Facial weakness following cerebral infarction; R29.701 NIHSS score 1; R33.9 Retention of urine, unspecified; I11.0 Hypertensive heart disease with heart failure; E78.5 Hyperlipidemia, unspecified; F17.210 Nicotine dependence, cigarettes, uncomplicated
CPT/HCPCS: 36415; 70450; 70551; 71045; 80048; 80053; 80307; 81003; 82948; 83735; 84484; 85025; 85027; 85610; 85730; 92610; 93005; 93306; 93880; 97161; 97166; 97530; 97535; 99285; A9270; C9803; G0378; J1650; U0003; U0005